=== PATIENT | female | born 1930 | race Caucasian/White ===

== ENCOUNTER 2017-04-27 00:36 | Emergency (ER) | payer OTHER, MEDICARE ==
[~2017-04-27] VITALS: Ht 149.9 cm; Wt 59.0 kg
[~2017-04-27 00:36] MED LIST: ACETAMINOPHEN325 M1 PO; ARICEPT10 M1 PO; ASPIRIN EC81 M1 PO; ASPIRIN325 PO; BENICAR PO; BENICAR20 MG PO; CALCIUM CARBO1250 MG PO; FISH OIL 1,001000 M2 PO; FISHOIL PO; GLUCOSAMINE-CH1 EA35 PO; MOBIC7.5 MG PO; NITROGLYCERIN0.4 MG SL; NORCO 5-325 TA1 EACH PO; ONE-A-DAY WOMENS PO; PRAVACHOL40 MG PO; SYNTHROID50 MCG PO; TRAMADOL 50 MG50 MG PO; VITAMIN D400 UNI1 PO
[2017-04-27] MEDS ORDERED: PLAVIX 75 MG TA75 M1 PO (01:50)
[2017-04-27 03:52] LABS: BASOPHILS 0.4 % (0.0-2.0); HEMATOCRIT 36.3 % (37.0-47.0); HEMOGLOBIN 12.5 gm/dL (12.0-15.0); LYMPHOCYTES 12.7 % (24.0-44.0); MCH 31.3 pg (26.0-34.0); MCHC 34.4 g/dL (28.0-37.0); MCV 91.1 fL (80.0-100.0); MONOCYTES 8.7 % (1.0-8.0); PLATELET COUNT 308 thou/uL (150-400); POLYS 77.2 % (36.0-66.0); RBC 3.99 mil/uL (4.20-5.00); WBC 7.8 thou/uL (4.0-11.0)
[2017-04-27 03:55] LABS: CREATININE 0.8 mg/dL (0.6-1.0); POTASSIUM 3.6 mmol/L (3.5-5.1)
[2017-04-27 04:04] LABS: APTT 25.8 Seconds (24.5-32.8); PROTIME 9.8 Seconds (9.3-11.4)
[2017-04-27 04:08] VITALS: BP 130/58
[2017-04-27 04:16] LABS: URINE BILIRUBIN NEGATIVE (Negative); URINE BLOOD NEGATIVE (Negative); URINE CLARITY CLEAR; URINE COLOR YELLOW; URINE GLUCOSE-RANDOM* NEGATIVE (Negative); URINE KETONES TRACE (Negative); URINE LEUKOCYTES-REFLEX NEGATIVE (Negative); URINE NITRITE-REFLEX NEGATIVE (Negative); URINE PROTEIN (DIPSTICK) NEGATIVE (Negative); URINE SPECIFIC GRAVITY 1.025 (1.005-1.035); URINE UROBILINOGEN 0.2 E.U./dl (0.2-1.0)
== END 2017-04-27 05:02 | disposition short-term general hospital (02) ==
LOC: ER 00:36
PROVIDERS: Emergency Medicine
DX: S01.112A Laceration without foreign body of left eyelid and periocular area, initial encounter (principal); S06.5X9A Traumatic subdural hemorrhage with loss of consciousness of unspecified duration, initial encounter; Z88.6 Allergy status to analgesic agent; W19.XXXA Unspecified fall, initial encounter; Y93.89 Activity, other specified; Y92.128 Other place in nursing home as the place of occurrence of the external cause; Y99.8 Other external cause status